=== PATIENT | female | born 1950 | race Caucasian/White ===

== ENCOUNTER 2017-05-16 10:58 | Outpatient (CLI) | payer BC | END 2017-05-16 10:59 | disposition home or self-care (01) | LOC: BICMAMMO 10:58 | PROVIDERS: ATTEND Internal Medicine | DX: Z12.31 Encounter for screening mammogram for malignant neoplasm of breast (principal); Z13.820 Encounter for screening for osteoporosis; M85.859 Other specified disorders of bone density and structure, unspecified thigh; M85.88 Other specified disorders of bone density and structure, other site | CPT/HCPCS: 77063; 77067; 77080 ==

== ENCOUNTER 2019-05-24 17:59 | Inpatient (IN) | payer BC ==
[~2019-05-24 17:59] MED LIST: Iopamidol-370 76% 500 ML 1 ML ONE
[2019-05-24 21:06] LABS: #Lymphocytes 0.9 thou/uL (1.20-3.40); #Monocytes 0.8 thou/uL (0.11-0.59); #Neutrophils 12.3 thou/uL (1.40-6.50); %Basophils 0.3 % (0.0-1.0); %Eosinophils 0.1 % (0.0-10.0); %Lymphocytes 6.3 % (21.0-51.0); %Monocytes 5.9 % (0.0-10.0); %Neutrophils 87.4 % (42.0-75.0); Mean Corpuscular HGB CONC 33.6 g/dL (32.0-36.0); Mean Corpuscular Hemoglobin 30.2 pg (27.0-31.0); Mean Corpuscular Volume 89.8 fL (78.0-98.0); Mean Platelet Volume 7.5 fL (7.4-10.4); Platelet Count 194 thou/uL (130-400); RBC Distribution Width 12.5 % (11.5-14.5); Red Blood Cell (RBC) Count 4.31 mill/uL (4.20-5.40); White Blood Cell (WBC) Count 14.1 thou/uL (4.8-10.8)
[2019-05-24 21:26] LABS: ALT (SGPT) 11 U/L (8-55); AST (SGOT) 17 U/L (5-34); Albumin 4.5 g/dL (3.4-4.8); Alkaline Phosphatase 114 U/L (40-110); Anion Gap 15 mmol/L (10-20); BUN (Urea Nitrogen) 17 mg/dL (9.8-20.1); Bilirubin, Total 1.5 mg/dL (0.2-1.2); Calc. Creatinine Clearance 0 mL/min (70-130); Calcium 9.8 mg/dL (7.8-10.44); Carbon Dioxide 25 mmol/L (23-31); Chloride 103 mmol/L (98-107); Estimated GFR-MDRD 55; Globulin 3.1 g/dL (2.4-3.5); Glucose 128 mg/dL (80-115); Protein, Total 7.6 g/dL (6.0-8.3); Sodium 139 mmol/L (136-145)
[2019-05-24] MEDS ORDERED: Morphine 4 MG/ML VIAL ONE (21:28)
[2019-05-24] MEDS ORDERED: Ondansetron PF 4 MG/2 ML Vial ONE (21:28)
[2019-05-24 21:29] LABS: Bacteria/HPF None Seen HPF (None Seen); Bilirubin Negative (Negative); Blood, Urine Negative (Negative); Clarity Clear (Clear); Glucose, Urine (Dipstick) Normal (Negative); Leukocyte Negative Leu/uL (Negative); Nitrite Negative (Negative); Protein, Urine (Dipstick) 30 mg/dL (Neg-Trace); RBC/HPF 0-3 HPF (0-3); Squamous Epithelial None Seen HPF (0-3); Urobilinogen Normal mg/dL (Less than 2); WBC/HPF 0-3 HPF (0-3)
--- NOTE | 2019-05-24 21:56 | CT ---
EXAM: CT Abdomen Pelvis W Con PROVIDED CLINICAL HISTORY: Abdominal pain COMPARISON: None FINDINGS: The visualized lung bases are free of significant opacity. The liver, spleen, pancreas, kidneys and adrenal glands demonstrate an unremarkable CT appearance. Th ere is a subcentimeter hypodensity involving the inferior pole left kidney too small to definitively characterize but statistically reflecting a cyst. There is mural thickening involving the mid to distal sigmoid colon with surrounding inflammatory fat stranding. There is a focus of gas at the medial aspect of the sigmoid colon wall which cannot be confirmed as intraluminal. This could be gas within a diverticulum or a contained perforation. There is a small amount of free pelvic fluid. No focal fluid collection is evident. There is no evidence for free intraperitoneal air. No evidence for bowel obstruction. No additional f at stranding is evident. The appendix appears normal. The regional major vascular structures demonstrate an unremarkable CT appearance. The osseous structures demonstrate no concerning lytic or blastic lesions. IMPRESSION: Acute sigmoid diverticulitis as described above.
[2019-05-25] MEDS ORDERED: Piperacillin/Tazobactam 4.5 GM VIAL ONE (00:05)
[2019-05-25] MEDS ORDERED: Morphine 4 MG/ML VIAL SLOW IVP PRN ×2 (02:19→10:00)
[2019-05-25] MEDS ORDERED: Ondansetron PF 4 MG/2 ML Vial IVP PRN (02:19)
[2019-05-25] MEDS ORDERED: Lactated Ringer's 1,000 ML IV SCH (02:30)
[2019-05-25] MEDS: Morphine 4 MG/ML VIAL SLOW IVP PRN ×2 (02:46→09:07)
[2019-05-25 02:56] VITALS: BMI 25.4
[2019-05-25] MEDS ORDERED: Piperacillin/Tazobactam 4.5 GM in Sodium Chloride 0.9% 100 ML IVPB SCH (09:00)
[2019-05-25] MEDS ORDERED: Prevnar 13-Val Conj/PF 0.5 ML SYRINGE IM ONE (09:00)
[2019-05-25] MEDS ORDERED: Morphine 2 MG/ML SYRINGE SLOW IVP PRN (10:00)
[2019-05-25] MEDS ORDERED: Lorazepam 2 MG/ML VIAL SLOW IVP PRN (10:00)
[2019-05-25] MEDS ORDERED: Sodium Chloride 0.9% (PF) 10 ML VIAL FS PRN (12:06)
--- NOTE | 2019-05-25 12:18 | HP ---
CHIEF COMPLAINT: Lower abdominal pain. HISTORY OF PRESENT ILLNESS: This is a 68-year-old female, who 2 days ago started having suprapubic pain after eating bran. Yesterday, the pain got a lot worse, worse with ambulation. She came to the emergency room. She had a previous episode in 1989 that thought she had appendicitis, but turned out, they did not wind up doing surgery. Her last bowel movement was yesterday. She has passed some gas today. She had a colonoscopy about 10 years ago. She reports no bleeding. PAST MEDICAL HISTORY: She does have anxiety and depression. PAST SURGICAL HISTORY: She has had an oophorectomy, bilateral cataract. ALLERGIES: SHE HAS NO KNOWN DRUG ALLERGIES. MEDICATIONS: Include: 1. Vitamin D. 2. Zyrtec. 3. Calcium. 4. Zoloft. 5. Lorazepam. SOCIAL HISTORY: She is . No tobacco. Social alcohol. 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 FAMILY HISTORY: Noncontributory. PHYSICAL EXAMINATION: VITAL SIGNS: Temperature 98, pulse 84, and blood pressure 93/57. GENERAL: She is awake and alert, in minimal distress. HEENT: Unremarkable. No jaundice. LUNGS: Clear. HEART: Regular rate and rhythm. ABDOMEN: Distended. She is tender in the suprapubic and slightly to the right side. No palpable mass. EXTREMITIES: Unremarkable. LABORATORY DATA: White count 14, hemoglobin and hematocrit of 13 and 38, platelet count 194. Electrolytes are fine. Elevated glucose 128. CT shows sigmoid diverticulitis, tiny focus of possible extraluminal gas. No abscess. ASSESSMENT: Diverticulitis. PLAN: Bowel rest, IV antibiotics. She will have ice chips. Job ID: [id number]
[2019-05-25] MEDS: Lactated Ringer's 1,000 ML IV SCH ×3 (12:31→23:52)
[2019-05-25] MEDS: Piperacillin/Tazobactam 3.375 GM in Sodium Chloride 0.9% 100 ML IVPB SCH ×2 (14:45→20:26)
[2019-05-26] MEDS: Piperacillin/Tazobactam 3.375 GM in Sodium Chloride 0.9% 100 ML IVPB SCH ×4 (02:11→20:09)
[2019-05-26] MEDS: Pantoprazole 40 MG VIAL IVP SCH (08:46)
[2019-05-26] MEDS: Lactated Ringer's 1,000 ML IV SCH ×2 (08:46→15:20)
--- NOTE | 2019-05-26 12:01 | PRG ---
DATE OF SERVICE: 05/26/2019 SUBJECTIVE: The patient reports she is feeling much better. She is still passing gas, still has little bit of distention. No nausea or vomiting. She is hungry. OBJECTIVE: VITAL SIGNS: On examination, temperature is 98.4, pulse 85, blood pressure 107/62. GENERAL: She is awake, alert, in no apparent distress. ABDOMEN: Soft. Slight distention. Minimal left lower quadrant tenderness. ASSESSMENT: Diverticulitis, improved. PLAN: Clear liquid diet. She will restart her sertraline. Job ID: [id number]
[2019-05-27] MEDS: Piperacillin/Tazobactam 3.375 GM in Sodium Chloride 0.9% 100 ML IVPB SCH ×4 (03:27→20:20)
[2019-05-27] MEDS: Lactated Ringer's 1,000 ML IV SCH (03:31)
[2019-05-27] MEDS: Pantoprazole 40 MG VIAL IVP SCH (08:10)
--- NOTE | 2019-05-27 09:15 | PRG ---
DATE OF SERVICE: 05/27/2019 SUBJECTIVE: The patient says she is feeling a lot better. She had a bowel movement. Pain is much better. OBJECTIVE: VITAL SIGNS: On exam, temperature 98, pulse 61, and blood pressure 106/68. GENERAL: She is awake, alert. ABDOMEN: Soft, less distended, less tender. ASSESSMENT: Improved. PLAN: Full liquid diet. Dietary consultation for low-fiber diet or low-residue diet and will check her CBC. Job ID: [id number]
[2019-05-27 10:37] LABS: #Eosinphils 0.1 thou/uL (0.0-0.7); #Lymphocytes 0.9 thou/uL (1.20-3.40); #Monocytes 0.4 thou/uL (0.11-0.59); #Neutrophils 3.4 thou/uL (1.40-6.50); %Basophils 0.1 % (0.0-1.0); %Eosinophils 2.8 % (0.0-10.0); %Lymphocytes 18.2 % (21.0-51.0); %Monocytes 7.4 % (0.0-10.0); %Neutrophils 71.5 % (42.0-75.0); Hemoglobin 11.2 g/dL (12.0-16.0); Mean Corpuscular HGB CONC 32.3 g/dL (32.0-36.0); Mean Corpuscular Hemoglobin 29.3 pg (27.0-31.0); Mean Corpuscular Volume 90.7 fL (78.0-98.0); Mean Platelet Volume 7.6 fL (7.4-10.4); Platelet Count 191 thou/uL (130-400); RBC Distribution Width 12.4 % (11.5-14.5); Red Blood Cell (RBC) Count 3.81 mill/uL (4.20-5.40); White Blood Cell (WBC) Count 4.8 thou/uL (4.8-10.8)
[2019-05-27 10:56] LABS: Anion Gap 12 mmol/L (10-20); BUN (Urea Nitrogen) 7 mg/dL (9.8-20.1); Calc. Creatinine Clearance 72 mL/min (70-130); Calcium 8.9 mg/dL (7.8-10.44); Carbon Dioxide 26 mmol/L (23-31); Chloride 107 mmol/L (98-107); Estimated GFR-MDRD 70; Glucose 173 mg/dL (80-115); Potassium 3.7 mmol/L (3.5-5.1); Sodium 141 mmol/L (136-145)
[2019-05-28] MEDS: Piperacillin/Tazobactam 3.375 GM in Sodium Chloride 0.9% 100 ML IVPB SCH ×2 (03:52→09:51)
[2019-05-28] MEDS: Lactated Ringer's 1,000 ML IV SCH (03:53)
--- NOTE | 2019-05-28 08:26 | PRG ---
DATE OF SERVICE: 05/28/2019 SUBJECTIVE: The patient is feeling a lot better. Denies any pain. She has had a bowel movement. She is tolerating full liquids well. OBJECTIVE: VITAL SIGNS: On examination, temperature 97.9, pulse 74, and blood pressure 98/63. GENERAL: She looks good. ABDOMEN: Soft, nondistended, and nontender. ASSESSMENT: Diverticulitis, resolving. PLAN: Fiber-restricted diet, saline lock IV. We will probably discharge home soon on oral antibiotics. Job ID: [id number]
[2019-05-28] MEDS: Pantoprazole 40 MG VIAL IVP SCH (09:51)
[2019-05-28 11:21] VITALS: BP 120/73; TEMP 98
--- NOTE | 2019-05-28 15:10 | DIS ---
DATE OF ADMISSION: 05/25/2019 DATE OF DISCHARGE: 05/28/2019 DISCHARGE DIAGNOSIS: Diverticulitis with microperforation. PROCEDURES DURING ADMISSION: Bowel rest, IV antibiotics. HOSPITAL COURSE: The patient was admitted, given IV fluids, placed on bowel rest. Her pain quickly improved. She started having bowel movements, started back on clear liquids that was advanced to a low-fiber diet. She has been informed to stay on low-fiber diet. She will continue oral antibiotics for the next 2 weeks. She will follow up with me in 2 weeks. Job ID: [id number]
== END 2019-05-28 15:58 | disposition home or self-care (01) | DRG 392 ==
LOC: ERS 17:59 → SURG B 05-25 02:00 → OBSVTOIN 05-25 02:05
PROVIDERS: ADMIT Surgery; ATTEND Surgery
DX: K57.20 Diverticulitis of large intestine with perforation and abscess without bleeding (principal); F41.9 Anxiety disorder, unspecified; F32.9 Major depressive disorder, single episode, unspecified; Z79.899 Other long term (current) drug therapy; Z90.722 Acquired absence of ovaries, bilateral
CPT/HCPCS: 36415; 74177; 80048; 80053; 81003; 81015; 85025; 96361; 96365; 96375; C9113; J2270; J2405; J2543; J3490; Q9967

== ENCOUNTER 2019-09-11 08:30 | Outpatient (CLI) | payer BC ==
--- NOTE | 2019-09-11 09:15 | BD ---
EXAM: DEXA bone density examination HISTORY: 69-year-old postmenopausal female for screening COMPARISON: None FINDINGS: L1--bone mineral density 0.848 g/sq cm; T score -1.3 L2--bone mineral density 0.934 g/sq cm; T score -0.9 L3--bone mineral density 0.934 g/sq cm; T score -1.4 L4--bone mineral density 0.955 g/sq cm; T score -1.0 Total L1-L4--bone mineral density 0.921 g/sq cm; T score -1.1 Left femoral neck--bone mineral density0.672; T score -1.6 Total proximal left femur--bone mineral density 0.857; T score -0.7 IMPRESSION: Osteopenia. This patient has a 10 year WHO fracture risk of a major osteoporotic fracture of 9.6% and of a hip fracture of 1.3%.
--- NOTE | 2019-09-11 11:40 | MMO ---
Bilateral MAMMO Bilat Screen [facility]. CLINICAL HISTORY: Patient is 69 years old and is seen for screening. The patient has no family history of breast cancer. The patient has no personal history of cancer. The patient has a history of right Excisional Biopsy at age 43 - benign. VIEWS: The views performed were: bilateral craniocaudal with tomosynthesis and bilateral mediolateral oblique with tomosynthesis. FILMS COMPARED: The present examination has been compared to prior imaging studies performed at [facility] on 01/23/2014, 01/26/2015, 02/11/2016 and 05/16/2017. This study has been interpreted with the assistance of computer-aided detection. MAMMOGRAM FINDINGS: The breasts are heterogeneously dense, which could obscure a lesion on mammography. There are no suspicious masses, suspicious calcifications, or new areas of architectural distortion. IMPRESSION: THERE IS NO MAMMOGRAPHIC EVIDENCE OF MALIGNANCY. A ROUTINE FOLLOW-UP MAMMOGRAM IN 1 YEAR IS RECOMMENDED. THE RESULTS OF THIS EXAM WERE SENT TO THE PATIENT. ACR BI-RADS Category 1 - Negative MAMMOGRAPHY NOTE: 1. A negative mammogram report should not delay a biopsy if a dominant of clinically suspicious mass is present. 2. Approximately 10% to 15% of breast cancers are not detected by mammography. 3. Adenosis and dense breasts may obscure an underlying neoplasm. Reported by: LANEY VILLANUEVA MD Electonically Signed: [id number]
== END 2019-09-11 08:31 | disposition home or self-care (01) ==
LOC: BICMAMMO 08:30
PROVIDERS: ATTEND Obstetrics & Gynecology
DX: Z12.31 Encounter for screening mammogram for malignant neoplasm of breast (principal); M85.89 Other specified disorders of bone density and structure, multiple sites; Z91.89 Other specified personal risk factors, not elsewhere classified
CPT/HCPCS: 77063; 77067; 77080

== ENCOUNTER 2020-09-18 13:59 | Outpatient (CLI) | payer BC | END 2020-09-18 14:00 | disposition home or self-care (01) | LOC: BICMAMMO 13:59 | PROVIDERS: ATTEND Internal Medicine | DX: Z12.31 Encounter for screening mammogram for malignant neoplasm of breast (principal) | CPT/HCPCS: 77063; 77067 ==